=== PATIENT | female | born 2000 | race Caucasian/White ===

== ENCOUNTER → 2018-07-30 | Outpatient (CLI) | payer OTHER ==
--- NOTE | 2018-07-30 11:26 | RAD ---
Complete abdominal ultrasound History: Epigastric pain, nausea and vomiting.. Findings: Pancreatic tail is not visualized due to bowel gas. Otherwise pancreas appears unremarkable. No evidence of gallstone or gallbladder wall thickening. Liver not enlarged. No significant biliary ductal dilatation. IVC is visualized. Right kidney measures 11.2 cm without hydronephrosis. Aorta is nonaneurysmal. Spleen not enlarged. Left kidney measures 10.6 cm longitudinal without hydronephrosis. IMPRESSION: No significant sonographic abnormality. Electronically signed by: Nahum Hummel MD (07/30/2018 11:23 AM) [id number]
== END | disposition home or self-care (01) ==
LOC: US 10:27
PROVIDERS: ATTEND Physician Assistant
DX: R10.13 Epigastric pain (principal); R11.0 Nausea
CPT/HCPCS: 76700

== ENCOUNTER → 2018-08-04 | Outpatient (CLI) | payer OTHER ==
[~2018-08-04] VITALS: Ht 167.6 cm; Wt 54.4 kg
[~2018-08-04] MED LIST: SINCALIDE 1.09 MCG in IV NORMAL SALINE 50ML 30 ML IV ONE
--- NOTE | 2018-08-04 10:24 | RAD ---
Radionuclide hepatobiliary scan with gallbladder ejection fraction, 08/04/2018: HISTORY: Nausea, vomiting, epigastric pain Following IV injection of 5.5 mCi of technetium 99m Choletec there was prompt uptake of the radionuclide from the blood stream by the liver. Activity is present in the gallbladder and bile ducts at 10 minutes. Small bowel activity developed at 15 minutes. Additional imaging was then performed following IV injection of 1 mg of cholecystokinin. The gallbladder ejection fraction was calculated at 83 percent. IMPRESSION: 1. Normal radionuclide hepatobiliary scan. 2. The gallbladder ejection fraction is 83 percent. Electronically signed by: Oswaldo De Santiago MD (08/04/2018 10:21 AM) [facility]
== END | disposition home or self-care (01) ==
LOC: NM 07:41
PROVIDERS: ATTEND Physician Assistant
DX: R10.13 Epigastric pain (principal); R11.0 Nausea; R10.11 Right upper quadrant pain
CPT/HCPCS: 78227; A9537; J2805